=== PATIENT | male | born 1960 ===

== ENCOUNTER → 2019-09-12 | Outpatient (CLI) | payer BC ==
--- NOTE | 2019-09-13 04:23 | CONS ---
CONSULTATION DATE OF SERVICE: 09/12/2019 59-year-old gentleman has [facility] for possible obstructive sleep apnea-hypopnea syndrome. HISTORY OF PRESENT ILLNESS/SLEEP WAKE EVALUATION: SLEEP SCHEDULE: Patient's usual sleep schedule on working days from 11 p.m. to 6:00 to 6:30 a.m. and on weekends from 11 p.m. to 7:00 to 7:30 a.m. FALLING ASLEEP: Sometimes he has problems with falling asleep, although no TV in bedroom. DURING SLEEP: He sleeps in different positions. According to his he snores and has episodes of stopped breathing during sleep. He wakes up from sleep 2 times with dry mouth and nocturia. DURING THE DAY, SLEEP WAKE EVALUATION: In the morning he wakes up tired, may feel sleepy during the day. [place] Sleepiness Scale is 7. No history of hypnagogic hallucinations, sleep paralysis or cataplexy. PAST MEDICAL HISTORY: Positive for hypertension and hyperlipidemia. MEDICATIONS: Atorvastatin, lisinopril, hydrochlorothiazide. SURGICAL HISTORY: Positive for colonoscopy. FAMILY HISTORY: Hypertension heart problems, cancer. REVIEW OF SYSTEMS: Awakenings from sleep, snoring, episodes of stopped breathing. PHYSICAL EXAM: 59-year-old gentleman without distress. BP 139/94, HR 80, RR 16, height 5 feet 7 inches, weight 191.0, temperature 98.0, oxygen saturation at room air 96%. Small oropharyngeal air space. Mallampati around 3. Neck size 16-1/4 inches in circumference. NECK: Supple, no JVD. Thyroid is not palpable. LUNGS: Clear to percussion and to auscultation. Good air exchange. No wheezing or rhonchi. HEART: S1, S2 regular. No murmurs, gallops, or rubs. ABDOMEN: Soft and nontender. Bowel sounds are present. No organomegaly appreciated. EXTREMITIES: No clubbing or cyanosis. EMERGENCY ROOM REGISTERED NURSE: Awake, alert, and oriented X3. Cranial nerves 2 to 7 intact. There is no fasciculation or atrophy. noted. No focal deficits observed. IMPRESSION: 1. Loud snoring, witnessed episodes of stopped breathing during sleep, small oropharyngeal air space. Obstructive sleep apnea-hypopnea syndrome. 2. Hypertension. 3. Hyperlipidemia. 4. Some overweight, body mass index 28.1. PLAN: 1. Polysomnography for evaluation of patient's breathing during sleep. 2. CPAP/BiPAP titration if sleep study confirms obstructive sleep apnea-hypopnea syndrome. 3. Preferable position during sleep on the side. 4. No driving if patient feels any sleepiness. 5. I will see patient for follow up visit to explain results of testing and following plan. Thank you very much for referring this patient for consultation. Sincerely, Jax Coleman MD, PhD, FAASM Diplomat of [place] [employer] [place] [employer] [place] MMODL / IJN: [id number] /
== END | disposition home or self-care (01) ==
LOC: SLEEP 16:04 → EDBD 16:10
PROVIDERS: ATTEND Internal Medicine
DX: G47.33 Obstructive sleep apnea (adult) (pediatric) (principal); I10 Essential (primary) hypertension; E78.5 Hyperlipidemia, unspecified; E66.3 Overweight; Z68.28 Body mass index [BMI] 28.0-28.9, adult; Z79.899 Other long term (current) drug therapy
CPT/HCPCS: 99201

== ENCOUNTER → 2022-06-17 | Outpatient (CLI) | payer BC ==
--- NOTE | 2022-06-17 08:35 | US ---
EXAMINATION TYPE: US abdomen complete DATE OF EXAM: 06/17/2022 COMPARISON: NONE CLINICAL HISTORY: R14.0 ABDOMINAL DISTENSION (GASEOUS). Bloating TECHNIQUE: Multiple sonographic images of the abdomen are obtained. FINDINGS: EXAM MEASUREMENTS: Liver Length: 16.2 cm Gallbladder Wall: 0.4 cm CBD: 0.6 cm Spleen: 9.8 cm Right Kidney: 10.3 x 4.5 x 4.9 cm Left Kidney: 11.4 x 5.4 x 5.3 cm BILLING COORDINATOR NOTES: *Technical limitations due to large amount of overlying bowel content Pancreas: Tail obscured by overlying bowel gas Liver: wnl as visualized Gallbladder: shadowing area visualized, possible GB filled with stones Evidence for sonographic Villatoro's sign: no CBD: limited evaluation, upper limits of normal Spleen: granulomas Right Kidney: cystic area upper pole = 1.2 x 1.3 x 1.3cm Left Kidney: cystic area mid = 3.7 x 2.7 x 3.0cm Upper IVC: appears wnl Abd Aorta: visualized portions appear wnl Suboptimal study. The visualized liver is homogenous. The intrahepatic portion of the IVC and visual ized abdominal aorta are within normal limits. At level of the gallbladder fossa there is curvilinear shadowing density thought to reflect stone filled contracted gallbladder. Common bile duct is upper limits of normal. The visualized portions of the pancreas are homogenous. The spleen is normal in size with central punctate hyperechoic foci could reflect calcifications related to old granulomatous disease. Kidneys are symmetric and free of hydronephrosis. Technologist new simple appearing thin -walled cysts bilaterally in both kidneys. No renal lesions are seen. IMPRESSION: Slightly suboptimal study without acute findings seen. No intra-abdominal ascites noted.
== END | disposition home or self-care (01) ==
LOC: RADUSWWP 07:30
PROVIDERS: ATTEND Family Medicine
DX: R14.0 Abdominal distension (gaseous) (principal)
CPT/HCPCS: 76700